=== PATIENT | male | born 1960 | race Two or more races ===

== ENCOUNTER 2018-10-29 18:01 | Emergency (ER) | payer MEDICAID ==
[~2018-10-29] VITALS: Ht 177.8 cm; Wt 81.6 kg
[~2018-10-29 18:01] MED LIST: NORPTMEDS CO
[2018-10-29 18:33] VITALS: BP 145/93
[2018-10-29 19:10] LABS: Basophils # (auto) 0 uL; Basophils % (auto) 0.8 % (0.0-2.0); Eosinophils # (auto) 0.3 uL; Eosinophils % (auto) 6.3 % (0.0-7.0); Hematocrit 43.7 % (41.0-53.0); Hemoglobin 15.1 g/dL (13.5-17.5); Lymphocytes # (auto) 1.5 uL; Mean Corpuscular Hgb Conc. 34.5 g/dL (32.0-36.0); Mean Corpuscular Volume 98.4 fL (80.0-100.0); Monocytes # (auto) 0.6 uL; Monocytes % (auto) 11.6 % (0.0-12.0); Neutrophils # (auto) 2.6 uL; Neutrophils % (auto) 51.3 % (37.0-80.0); Nucleated Red Blood Cells % 0.1 %; Platelet Count (auto) 180 10^3/uL (140-450); Red Blood Cells 4.44 10^6/uL (4.5-5.90); Red Cell Distribution Width 12.8 % (11.8-14.3); White Blood Cell 5.2 10^3/uL (4.4-10.8)
[2018-10-29 19:28] LABS: Albumin 3.8 g/dL (3.4-5.0); Amphetamine Screen, Urine NEGATIVE (NEGATIVE); Anion Gap 5 (5-15); Barbiturate Scree,Urine NEGATIVE (NEGATIVE); Benzodiazephine Screen, Urine NEGATIVE (NEGATIVE); Blood Urea Nitrogen 14 mg/dL (7-18); Calcium 8.3 mg/dL (8.5-10.1); Cannabinoid Screen, Urine NEGATIVE (NEGATIVE); Carbon Dioxide 28 mmol/L (21-32); Chloride 102 mmol/L (98-107); Cocaine Screen, Urine NEGATIVE (NEGATIVE); Glucose 98 mg/dL (74-106); Magnesium 2.2 mg/dL (1.6-2.6); Opiate Scree,Urine NEGATIVE (NEGATIVE); Phencyclidine Screen, Urine NEGATIVE (NEGATIVE); Potassium 3.7 mmol/L (3.5-5.1); Sodium 135 mmol/L (136-145)
[2018-10-29 19:34] LABS: Alanine Aminotransferase 47 U/L (16-61); Alkaline Phosphatase 44 U/L (45-117); Aspartate Aminotransferase 25 U/L (15-37); BUN/Creatinine Ratio 15.4; Bilirubin, Total 0.6 mg/dL (0.2-1.0); GFR African American 111 mL/min; GFR Non-African American 92 mL/min; Total Protein 7.9 g/dL (6.4-8.2)
[2018-10-29 19:39] LABS: Urine Bacteria NONE SEEN /hpf (None Seen); Urine Blood Negative /uL (Negative); Urine Specific Gravity 1.006 (1.001-1.035); Urine WBC <1 /hpf (0 - 3)
== END 2018-10-29 23:32 | disposition left against medical advice (07) ==
LOC: ER 18:01
DX: R42 Dizziness and giddiness (principal); R00.2 Palpitations; Z53.21 Procedure and treatment not carried out due to patient leaving prior to being seen by health care provider
CPT/HCPCS: 36415; 71046; 80053; 80307; 81001; 83735; 84484; 85025; 93005